=== PATIENT | male | born 1990 | race Caucasian/White ===

== ENCOUNTER → 2018-08-20 | Outpatient (CLI) | payer OTHER, MEDICAID | LOC: BRMIMAGING 09:32 | PROVIDERS: ATTEND Internal Medicine | DX: M20.11 Hallux valgus (acquired), right foot (principal); M20.12 Hallux valgus (acquired), left foot; Q66.7 Congenital pes cavus; M77.31 Calcaneal spur, right foot; M77.32 Calcaneal spur, left foot; M79.641 Pain in right hand; M25.511 Pain in right shoulder; M79.642 Pain in left hand; M25.512 Pain in left shoulder | CPT/HCPCS: 73030-PO; 73130-PO; 73630-PO ==